=== PATIENT | male | born 1975 ===

== ENCOUNTER 2019-04-19 00:23 | Emergency (ER) | payer OTHER ==
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
--- NOTE | 2019-04-19 09:34 | RAD REPORT ---
EXAM DESCRIPTION: CT - Tib Fib Right W Cont - 04/19/2019 5:37 am CLINICAL HISTORY: 43-year-old male with right tibia fibula pain, evaluate for infection. Patient com plains of a knot medial to the tibial tuberosity TECHNIQUE: Axial CT imaging of the right lower extremity was performed with intravenous contrast. Sagittal and coronal reconstructed images were then performed. The CT study is performed according to ALARA (as low as reasonably achievable) or ALARA/IMAGE GENTLY, with automatic adjustment of mA and/o r kV according to patient size. Performed on: 04/19/2019 at 3:04 AM COMPARISON: None FINDINGS: Bones: There is no evidence of fracture or dislocation. Bone mineralization is normal. The re are no significant degenerative or arthritic changes. There is a prominent enthesophyte along the anterior inferior patella and along the posterior calcaneus. Soft tissues: In the area of clinical concern along the medial aspect of the right lower leg at the l evel of the tibial tuberosity there is focal infiltration of the subcutaneous fat and focal soft tiss ue thickening without evidence of a discrete fluid collection to suggest an abscess. There is no evid ence of subcutaneous emphysema. There is edema and soft tissue swelling along the medial aspect of th e right ankle. No pathologic areas of enhancement are identified. There is no evidence of a joint eff usion. There is satisfactory blood flow into the right foot. IMPRESSION: 1. No evidence of acute osseous abnormality. 2. Focal infiltration of the subcutaneous fat with focal soft tissue thickening along the medial aspe ct of the proximal right lower leg at the level of the tibial tuberosity. No discrete abscess is iden tified. Findings may represent a localized area of cellulitis or potentially contusion. 3. Edema along the medial aspect of the right ankle. Electronically signed by: Anne Romero DO 04/19/2019 4:51 AM CDT Due to temporary technical issues with the PACS/Fluency reporting system, reports are being signed by the in house radiologist as a courtesy to ensure prompt reporting. The interpreting radiologist is f ully responsible for the content of the report.
== END 2019-04-19 06:14 | disposition home or self-care (01) ==
LOC: ER 00:23
DX: L02.415 Cutaneous abscess of right lower limb (principal); V49.9XXA Car occupant (driver) (passenger) injured in unspecified traffic accident, initial encounter
CPT/HCPCS: 36415; 73701; 99284; Q9967